=== PATIENT | female | born 1995 | race African-American/Black ===

== ENCOUNTER 2022-06-25 17:04 | Emergency (ER) | payer MEDICAID, SELFPAY ==
[2022-06-25 17:42] VITALS: BP 111/62; PULSE 79; RESP 18; TEMP 36.5; O2SAT 100
[2022-06-25 17:57] LABS: Basophils Absolute Auto 0.1 K/mm3 (0.0-0.1); Eosinophils Absolute Auto 0.3 K/mm3 (0-0.3); Eosinophils Percent Auto 5.7 % (0-4.4); Hematocrit 39.4 % (37.0-47.0); Hemoglobin 13.2 g/dL (12.0-15.0); Immature Granulocyte Absolute 0.01 K/mm3 (0.00-0.031); Immature Granulocyte Percent A 0.2 % (0-0.5); Lymphocytes Absolute Auto 1.94 K/mm3 (0.9-3.2); Lymphocytes Percent Auto 38.2 % (18.3-44.2); Mean Corpuscular HGB Conc 33.5 g/dl (32-36); Mean Corpuscular Hemoglobin 30.1 pg (26-34); Mean Corpuscular Volume 89.7 fl (80-100); Mean Platelet Volume 10.2 fl (7.4-10.4); Monocytes Absolute Auto 0.4 K/mm3 (0.1-0.6); Monocytes Percent Auto 8.7 % (2.6-8.5); Neutrophils Absolute Auto 2.4 K/mm3 (1.3-6.7); Neutrophils Percent Auto 46.2 % (45.5-73.1); Platelet Count Result 191 k/mm3 (150-375); Red Blood Count 4.39 M/mm3 (4.2-5.4); Red Cell Distribution Width 12.3 % (11.5-14.5); White Blood Count 5.1 K/mm3 (4.5-10.0)
[2022-06-25 18:08] LABS: Alanine Aminotransferase 17 U/L (6-35); Albumin Level 4.6 g/dL (3.5-5.1); Alkaline Phosphatase 50 U/L (38-126); Anion Gap 11 mmol/L (8-16); Aspartate Amino Transferase 23 U/L (14-36); Bilirubin,Total 0.3 mg/dL (0.2-1.3); Blood Urea Nitrogen 11 mg/dL (7-17); Calcium 9.4 mg/dL (8.4-10.2); Carbon Dioxide 28 mmol/L (22-30); Chloride 100 mmol/L (98-107); Estimated CRCL calculation 104 ml/min; Estimated Glomerular Filt Rate > 60; Glucose 77 mg/dL (65-110); Lipase 57 U/L (23-300); Potassium 3.6 mmol/L (3.4-5.0); Sodium 139 mmol/L (137-145)
--- NOTE | 2022-06-25 18:45 | ED.ABDPAIN ---
HPI - Abdominal Pain General Chief Complaint: Abdominal Pain Stated Complaint: abd pain Time Seen by Provider: 06/25/22 18:08 Source: patient Mode of arrival: ambulatory Limitations: no limitations History of Present Illness HPI narrative: Patient is a 26 y/o female who presents to the ED with c/o lower abdominal pain for the past 1 week. Patient reports the pain is intermittent and feels stabbing in nature. She states pain became more frequent today, which prompted her presentation. She has not tried anything for her pain over the last week. She states taking a nap helped her pain. She denies any other symptoms, fever, nausea, vomiting, diarrhea, constipation, urinary symptoms, back pain. Related Data Home Medications Medication Instructions Recorded Confirmed No Home Medications 06/25/22 06/25/22 Allergies Allergy/AdvReac Type Severity Reaction Status Date / Time No Known Allergies Allergy Verified 06/25/22 18:20 Review of Systems Review of Systems: CONSTITUTIONAL: Denies fever, chills, or sweats. CARDIOVASCULAR: Denies chest pain. RESPIRATORY: Denies dyspnea. GASTROINTESTINAL: Reports lower abdominal pain. Denies abdominal pain, constipation, nausea, vomiting, or diarrhea. GENITOURINARY: Denies dysuria or hematuria. MUSCULOSKELETAL: Denies back pain. All systems reviewed & are unremarkable except as noted in HPI and below PMFSH Past Medical History Medical History (Updated 06/26/22 @ 01:42 by Faviola Corona PA-C) No pertinent past medical history Surgical History Surgical History (Updated 06/26/22 @ 01:42 by Faviola Corona PA-C) No pertinent past surgical history Social History Social History (Updated 06/26/22 @ 01:42 by Faviola Corona PA-C) Smoking status: Never smoker Exam Narrative: GENERAL: Well appearing, well-nourished, non-toxic, in no acute distress. HEAD: Normocephalic, atraumatic. NECK: Supple. No adenopathy, no masses. RESPIRATORY: Airway patent, respirations nonlabored. Clear to auscultation bilaterally, no rales, rhonchi, wheezing. CARDIOVASCULAR: Regular rate and rhythm without murmurs, rubs, or gallops. Peripheral pulses 2+ and equal bilaterally. ABDOMINAL: Soft, mild tenderness in LUQ, suprapubic region, left lower abdomen. Nondistended, no hepatosplenomegaly. Normoactive BS. MUSCULOSKELETAL: Moves all extremities. Strength/ROM intact without gross deformities. SKIN: Warm, dry, normal color. No rashes. NEURO: A&O X3. Speech clear. Cranial nerves II-XII grossly intact. Steady gait. No ataxic movements. PSYCHIATRIC: Appropriate mood and affect. Normal interaction. Course Vital Signs Vital signs: Vital Signs Temperature 97.7 F 06/25/22 17:42 Pulse Rate 79 06/25/22 17:42 Respiratory Rate 18 06/25/22 17:42 Blood Pressure 111/62 06/25/22 17:42 Pulse Oximetry 100 06/25/22 17:42 Temperature 97.7 F 06/25/22 17:42 Pulse Rate 79 06/25/22 17:42 Respiratory Rate 18 06/25/22 17:42 Blood Pressure 111/62 06/25/22 17:42 Pulse Oximetry 100 06/25/22 17:42 MDM - Abdominal Pain MDM Narrative Medical decision making narrative: Patient presented to ED with diffuse lower abdominal pain x1 week. Had not tried anything for pain prior to arrival. Vital signs stable. Clinical examination fairly unremarkable. Minimal lower abdominal tenderness. Patient nontoxic-appearing in no acute distress. Laboratory evaluation completely unremarkable. UA without signs of infection. Patient later refused IV, pain medication, and CT scan. She states she needs to leave the facility at this time. She will sign out AMA due to incomplete evaluation. Paperwork signed. Risk of signing out AMA discussed with patient. She still wants to leave at this time. Advised she could return to the ED at any time for further evaluation. VSS throughout ED stay. She was witnessed ambulating with a steady gait throughout the ED. Medical Records Attestation: I rev
[2022-06-25 18:47] LABS: Appearance Urine Clear (Clear); Bilirubin Urine Negative (Negative); Blood Urine Negative (Negative); Color Urine Yellow (Yellow); Glucose Urine UA Negative (Negative); Ketones Urine Negative (Negative); Leukocyte Esterase Ur Trace LEU/UL (Negative); Nitrate Urine Negative (Negative); Protein Urine Negative (Negative); Specific Grav Ur 1.025 (1.001-1.035); Urobilinogen Urine 0.2 mg/dL (<2.0)
[2022-06-25 18:57] LABS: Mucus Urine Rare /lpf; RBC Urine 0-2 /hpf (0-2); Squamous Epithelial Cell Urine Occasional /hpf (Few); WBC Urine 0-3 /hpf
[2022-06-25 18:58] LABS: Add Urine Microscopic? YES
--- NOTE | 2022-06-25 19:27 | PC.NURSE ---
patient ambulated out of the ED with all belongings and no difficulty.
== END 2022-06-25 19:27 | disposition left against medical advice (07) ==
PROVIDERS: Emergency Provider Emergency Medicine
DX: R10.30 Lower abdominal pain, unspecified (principal)
CPT/HCPCS: 36415; 80053; 81001; 81025; 83690; 85025; 99283

== ENCOUNTER 2023-05-03 10:28 | Observation (INO) | payer MEDICAID, SELFPAY ==
--- NOTE | 2023-05-03 10:29 | OBADM ---
This patient, Lucila Gerard, admitted to the OB room Labor/Delivery/Recovery 118 for observation. Patient/family oriented to hospital policies and general routines including ID bracelet, bed and alarms, visiting hours, pain management, procedures, bathroom and other care routines, personal items, smoking policy, room service/diet, and visiting hours. Patient/Family are encouraged to report perceived risks to care and to ask questions if they do not understand what they are told or what they should do.
--- NOTE | 2023-05-05 14:39 | PM.OBTRLD ---
OB - Triage/Final Diagnosis Visit Information Comments/Additional reasons for admission: I have assessed the risk for this patient, Lucila Gerard, and determined that she would benefit from observation care. Final Diagnosis (1) Decreased movement: Qualifiers: Fetus number: single or unspecified fetus Trimester: unspecified trimester Qualified Code(s): O36.8190 - Decreased movements, unspecified trimester, not applicable or unspecified Code(s): O36.8190 - Decreased movements, unspecified trimester, not applicable or unspecified Status: Acute
== END 2023-05-03 11:34 | disposition home or self-care (01) ==
PROVIDERS: Admitting Provider Obstetrics & Gynecology; Visit Provider Obstetrics & Gynecology
DX: O36.8192 Decreased fetal movements, unspecified trimester, fetus 2 (principal); Z3A.28 28 weeks gestation of pregnancy
CPT/HCPCS: G0378; G0379